=== PATIENT | female | born 1980 | race Hispanic/Latino ===

== ENCOUNTER 2020-02-28 07:27 | Inpatient (IN) | payer OTHER, SELFPAY ==
[2020-02-28] VITALS (18 sets, daily range): BP systolic 105–138; BP diastolic 62–97
[~2020-02-28] VITALS: Ht 162.6 cm; Wt 122.5 kg
[2020-02-28 07:55] LABS: BASOPHILS % (AUTO) 0.8 % (0.0-5.0); EOSINOPHILS % (AUTO) 4.9 % (0.0-8.0); HEMATOCRIT 42.5 % (36-48); LYMPHOCYTES % (AUTO) 19.4 % (21.0-51.0); MEAN CORPUSCULAR HEMOGLOBIN 27.3 pg (27.0-33.0); MEAN CORPUSCULAR HGB CONC 32.5 g/dL (32.0-36.0); NEUTROPHILS % (AUTO) 67.4 % (40.0-77.0); PLATELET COUNT (AUTO) 321 K/uL (130-400); RED BLOOD CELL COUNT(AUTO) 5.06 MIL/uL (4.00-5.50); RED CELL DISTRIBUTION WIDTH 12.7 % (11.0-15.5); WHITE BLOOD COUNT (AUTO) 7.3 K/uL (4.8-10.8)
[2020-02-28 08:20] LABS: ALBUMIN 3.6 g/dL (3.5-5.0); BILIRUBIN,DIRECT 0.1 mg/dL (0.0-0.3); BILIRUBIN,TOTAL 0.3 mg/dL (0.2-1.0); CREATININE 0.7 mg/dL (0.5-1.5); POTASSIUM 4.5 mmol/L (3.5-5.1); TOTAL PROTEIN, SERUM 7.7 g/dL (6.0-8.3)
[2020-02-28 08:59] LABS: APPEARANCE,URINE Clear (CLEAR); BILIRUBIN,URINE Negative (NEGATIVE); COLOR,URINE Yellow (YELLOW); GLUCOSE, URINE (UA) Negative (NEGATIVE); HCG,QUAL RESULT NEGATIVE (NEGATIVE); KETONES,URINE Negative (NEGATIVE); LEUKOCYTE ESTERASE ,URINE Negative (NEGATIVE); NITRATE,URINE Negative (NEGATIVE); OCCULT BLOOD,URINE Negative (NEGATIVE); PROTEIN,URINE Negative (NEGATIVE); UROBILINOGEN,URINE 0.2 mg/dL (0.2-1.0)
[2020-02-28] MEDS ORDERED: MORPHINE SULFATE 2 MG/ML 1ML SYG IV PRN (09:30)
[2020-02-28] MEDS ORDERED: ONDANSETRON HCL 4 MG/2 ML VIAL IV PRN (09:30)
[2020-02-28] MEDS ORDERED: MORPHINE SULFATE 4 MG/1ML SYG IV PRN (09:30)
[2020-02-28] MEDS ORDERED: SODIUM CHLORIDE 0.9% 1000ML 1,000 ML IV SCH (09:30)
[2020-02-28] MEDS ORDERED: SUCCINYLCHOLINE 200MG/10ML SYR ONE ×2 (09:39→09:41)
[2020-02-28] MEDS ORDERED: DEXAMETHASONE SOD PHOSPHATE 10MG/ML 1ML VIAL ONE (09:39)
[2020-02-28] MEDS ORDERED: MIDAZOLAM HCL 1 MG/ML 2ML VIAL ONE (09:39)
[2020-02-28] MEDS ORDERED: LIDOCAINE PF 2% 5ML ABBOJECT ONE ×2 (09:39→09:41)
[2020-02-28] MEDS ORDERED: PROPOFOL 10 MG/ML 20ML VIAL IV ONE (09:39)
[2020-02-28] MEDS ORDERED: FENTANYL CITRATE PF 50 MCG/1 ML 2ML VIAL ONE (09:40)
[2020-02-28] MEDS ORDERED: ONDANSETRON HCL 4 MG/2 ML VIAL ONE ×2 (09:40→11:19)
[2020-02-28] MEDS ORDERED: ROCURONIUM 10MG/1ML SYR 10 MG/ML ML ONE (09:40)
[2020-02-28] MEDS ORDERED: NEOSTIGMINE 5MG/5ML SYR IV ONE (09:40)
[2020-02-28] MEDS ORDERED: GLYCOPYRROLATE 1 MG/5 ML SYRINGE ONE (09:40)
[2020-02-28] MEDS ORDERED: BUPR-93 PO (09:41)
[2020-02-28] MEDS ORDERED: LACTATED RINGERS 1000ML 1,000 ML IV ONE (09:49)
[2020-02-28] MEDS ORDERED: SODIUM CHLORIDE 0.9% 10 ML VIAL ONE (09:49)
[2020-02-28] MEDS: CEFAZOLIN SODIUM 1 GM VIAL ONE ×2 (10:01→10:10)
[2020-02-28] MEDS ORDERED: MEPERIDINE-PF 25 MG/ML SYG ONE ×2 (10:46→11:16)
[2020-02-28] MEDS ORDERED: FAMOTIDINE/PF 20 MG/2 ML VIAL IV SCH (21:00)
== END 2020-02-28 13:20 | disposition home or self-care (01) | DRG 328 ==
LOC: EDH 07:27 → EDHIP 09:23
PROVIDERS: ADMIT Internal Medicine; ATTEND Internal Medicine
PROC: 0DJ64ZZ Inspection of Stomach, Percutaneous Endoscopic Approach (ICD-10-PCS; principal; 2020-02-28 09:00)
DX: K43.2 Incisional hernia without obstruction or gangrene (principal); K66.0 Peritoneal adhesions (postprocedural) (postinfection); Z98.84 Bariatric surgery status; Z90.49 Acquired absence of other specified parts of digestive tract; Z85.72 Personal history of non-Hodgkin lymphomas
CPT/HCPCS: 36415; 80053; 80076; 81003; 81025; 83690; 85025; G0378; J0330; J0690; J1100; J2001; J2175; J2250; J2405; J2704; J2710; J3010; J3490; J7030; J7120

== ENCOUNTER 2020-11-14 17:00 | Inpatient (IN) | payer OTHER ==
[~2020-11-14] VITALS: Ht 165.1 cm; Wt 126.1 kg
[~2020-11-14 17:00] MED LIST: BUPR-93 PO
[2020-11-15 10:40] VITALS: BP_SYST 143; BP_SYST 201; BP_DIAS 81; BP_DIAS 90
[2020-11-15 10:58] LABS: BASOPHILS % (AUTO) 0.6 % (0.0-5.0); EOSINOPHILS % (AUTO) 4.1 % (0.0-8.0); HEMATOCRIT 40.8 % (36-48); MEAN CORPUSCULAR HEMOGLOBIN 25.7 pg (27.0-33.0); MEAN CORPUSCULAR HGB CONC 32.1 g/dL (32.0-36.0); MEAN CORPUSCULAR VOLUME 80.2 fL (79-99); MONOCYTES % (AUTO) 6.1 % (3.0-13.0); NEUTROPHILS % (AUTO) 68.4 % (40.0-77.0); PLATELET COUNT (AUTO) 326 K/uL (130-400); RED BLOOD CELL COUNT(AUTO) 5.09 MIL/uL (4.00-5.50); RED CELL DISTRIBUTION WIDTH 14.3 % (11.0-15.5); WHITE BLOOD COUNT (AUTO) 8.5 K/uL (4.8-10.8)
[2020-11-15 11:10] LABS: INR 0.98 (0.85-1.15); PROTHROMBIN TIME 10.7 SEC (9.6-11.6)
[2020-11-15 11:11] LABS: CREATININE 0.7 mg/dL (0.5-1.5); PARTIAL THROMBOPLASTIN TIME 27.6 SEC (26.3-35.5); POTASSIUM 4.2 mmol/L (3.5-5.1)
[2020-11-17] MEDS: CEFAZOLIN 3GM /D5W 100ML 100 ML IV SCH (06:00)
[2020-11-18] MEDS: CEFAZOLIN 3GM /D5W 100ML 100 ML IV SCH (06:00)
[2020-11-20] VITALS (27 sets, daily range): BP systolic 96–160; BP diastolic 58–101
[2020-11-20] MEDS ORDERED: KETAMINE 50MG/ML SYRINGE 50 MG/ML DISP.SYRIN IV ONE (07:10)
[2020-11-20] MEDS ORDERED: DEXMEDETOMIDINE HCL 200 MCG/2 ML VIAL IV ONE (07:10)
[2020-11-20] MEDS ORDERED: MAGNESIUM SULFATE 1 GM/2 ML VIAL ONE (07:11)
[2020-11-20] MEDS ORDERED: SCOPOLAMINE HYDROBROMIDE 1 EACH ADH..PATCH TD ONE (07:48)
[2020-11-20] MEDS ORDERED: BUPIVACAINE/PF 0.5% 30ML VIAL ONE (07:58)
[2020-11-20] MEDS ORDERED: CEFAZOLIN SODIUM 1 GM VIAL IVP ONE (08:00)
[2020-11-20] MEDS ORDERED: METOCLOPRAMIDE 10 MG/2 ML VIAL ONE (08:02)
[2020-11-20] MEDS: 0.9%NACL 1000ML 1,000 ML IV SCH ×2 (08:04→11:30)
[2020-11-20] MEDS: CEFAZOLIN SODIUM 1 GM VIAL ONE ×2 (08:05→08:45)
[2020-11-20] MEDS ORDERED: FAMOTIDINE 20MG VIAL IV ONE (08:13)
[2020-11-20] MEDS ORDERED: MIDAZOLAM HCL 1 MG/ML 2ML VIAL ONE (08:39)
[2020-11-20] MEDS ORDERED: ONDANSETRON 4MG INJ ONE ×2 (08:39→11:09)
[2020-11-20] MEDS ORDERED: SUGAMMADEX SODIUM 200 MG/2 ML VIAL IV ONE (08:42)
[2020-11-20] MEDS ORDERED: PROPOFOL 10 MG/ML 20ML VIAL IV ONE (08:49)
[2020-11-20] MEDS ORDERED: ROCURONIUM 10MG/1ML SYR 10 MG/ML ML ONE ×2 (08:50→09:19)
[2020-11-20] MEDS ORDERED: DEXAMETHASONE SOD PHOSPHATE 10MG/ML 1ML VIAL ONE (09:04)
[2020-11-20] MEDS ORDERED: FENTANYL CITRATE PF 50 MCG/1 ML 2ML VIAL ONE (09:18)
[2020-11-20] MEDS ORDERED: SCOPOLAMINE HYDROBROMIDE 1 EACH ADH..PATCH TD SCH (09:30)
[2020-11-20] MEDS ORDERED: FAMOTIDINE 20MG VIAL IV SCH (09:30)
[2020-11-20] MEDS ORDERED: KETOROLAC 30MG VIAL (30MG/ML) ONE (11:10)
[2020-11-20] MEDS ORDERED: MEPERIDINE-PF 25 MG/ML SYG ONE ×2 (11:50→11:59)
[2020-11-20] MEDS ORDERED: MORPHINE 5 MG/ML VIAL (5MG OR GREATER DOSE) IVP PRN (12:00)
[2020-11-20] MEDS ORDERED: KETOROLAC 30MG VIAL (30MG/ML) IV PRN (12:00)
[2020-11-20] MEDS: LACTATED RINGERS 1000ML 1,000 ML IV SCH ×2 (13:54→20:00)
[2020-11-20] MEDS: ONDANSETRON 4MG INJ IVP PRN ×2 (13:54→20:14)
[2020-11-20] MEDS: FAMOTIDINE 20MG VIAL IV SCH (20:14)
[2020-11-20] MEDS: ENOXAPARIN SODIUM 30 MG/0.3 ML SQ SCH (20:15)
[2020-11-21] VITALS: BP 140/83
[2020-11-21] MEDS: ONDANSETRON 4MG INJ IVP PRN ×4 (01:52→20:08)
[2020-11-21 03:50] VITALS: BP 145/89
[2020-11-21 03:56] LABS: BASOPHILS % (AUTO) 0.2 % (0.0-5.0); HEMATOCRIT 36.1 % (36-48); LYMPHOCYTES % (AUTO) 10.3 % (21.0-51.0); MEAN CORPUSCULAR HEMOGLOBIN 26.2 pg (27.0-33.0); MEAN CORPUSCULAR HGB CONC 31.9 g/dL (32.0-36.0); MEAN CORPUSCULAR VOLUME 82.2 fL (79-99); MONOCYTES % (AUTO) 9.4 % (3.0-13.0); NEUTROPHILS % (AUTO) 79.5 % (40.0-77.0); PLATELET COUNT (AUTO) 315 K/uL (130-400); RED BLOOD CELL COUNT(AUTO) 4.39 MIL/uL (4.00-5.50); RED CELL DISTRIBUTION WIDTH 14.1 % (11.0-15.5)
[2020-11-21] MEDS: LACTATED RINGERS 1000ML 1,000 ML IV SCH ×3 (04:00→20:10)
[2020-11-21 04:13] LABS: CREATININE 0.7 mg/dL (0.5-1.5); POTASSIUM 4.4 mmol/L (3.5-5.1)
[2020-11-21 07:00] VITALS: BP 153/82
[2020-11-21] MEDS ORDERED: METOCLOPRAMIDE 10 MG/2 ML VIAL ONE (09:16)
[2020-11-21] MEDS: FAMOTIDINE 20MG VIAL IV SCH ×2 (09:19→20:08)
[2020-11-21] MEDS: ENOXAPARIN SODIUM 30 MG/0.3 ML SQ SCH ×2 (09:20→20:10)
[2020-11-21 11:00] VITALS: BP 143/71
[2020-11-21] MEDS: METOCLOPRAMIDE 10 MG/2 ML VIAL IVP SCH ×2 (12:00→18:25)
[2020-11-21 15:00] VITALS: BP 151/83
[2020-11-21 19:00] VITALS: BP 159/85
[2020-11-22] VITALS: BP 146/76
[2020-11-22] MEDS: METOCLOPRAMIDE 10 MG/2 ML VIAL IVP SCH ×3 (00:21→12:00)
[2020-11-22 04:00] VITALS: BP 145/93
[2020-11-22] MEDS: LACTATED RINGERS 1000ML 1,000 ML IV SCH ×2 (04:00→12:00)
[2020-11-22 08:00] VITALS: BP 157/85
[2020-11-22] MEDS: ENOXAPARIN SODIUM 30 MG/0.3 ML SQ SCH (08:44)
[2020-11-22] MEDS ORDERED: FAMOTIDINE 20MG TAB PO SCH (09:00)
[2020-11-22 12:01] VITALS: BP 151/83
== END 2020-11-22 15:51 | disposition home or self-care (01) | DRG 621 ==
LOC: EDSTATUS 17:00 → DAHIP 11-20 07:06 → 4BH 11-20 12:00
PROVIDERS: ADMIT Surgery; ATTEND Surgery
PROC: 5A09357 Assistance with Respiratory Ventilation, Less than 24 Consecutive Hours, Continuous Positive Airway Pressure (ICD-10-PCS; 2020-11-20)
PROC: 0DB64Z3 Excision of Stomach, Percutaneous Endoscopic Approach, Vertical (ICD-10-PCS; principal; 2020-11-20 08:00)
PROC: 0DJ08ZZ Inspection of Upper Intestinal Tract, Via Natural or Artificial Opening Endoscopic (ICD-10-PCS; 2020-11-20 08:00)
PROC: 5A09357 Assistance with Respiratory Ventilation, Less than 24 Consecutive Hours, Continuous Positive Airway Pressure (ICD-10-PCS; 2020-11-21)
PROC: 5A09357 Assistance with Respiratory Ventilation, Less than 24 Consecutive Hours, Continuous Positive Airway Pressure (ICD-10-PCS; 2020-11-22)
DX: E66.01 Morbid (severe) obesity due to excess calories (principal); K66.0 Peritoneal adhesions (postprocedural) (postinfection); Z20.822 Contact with and (suspected) exposure to COVID-19; E11.9 Type 2 diabetes mellitus without complications; Z68.42 Body mass index [BMI] 45.0-49.9, adult; Z90.49 Acquired absence of other specified parts of digestive tract
CPT/HCPCS: 36415; 43235; 80048; 82948; 85025; 85610; 85730; 86850; 86900; 86901; 87635; 94660; 94760; 96374; A4606; G0378; J0690; J1100; J1650; J1885; J2175; J2250; J2270; J2405; J2704; J2765; J3010; J3475; J3490; J7030; J7120

== ENCOUNTER → 2024-01-28 | Outpatient (CLI) | payer OTHER ==
[2024-01-28 10:00] LABS: INR 1.01 (0.85-1.15); PARTIAL THROMBOPLASTIN TIME 27.9 SEC (26.3-35.5); PROTHROMBIN TIME 10.9 SEC (9.6-11.6)
--- NOTE | 2024-01-28 11:40 | NUR ---
U/S GUIDED BILATERAL THYROID NODULE FNA TOLERATED PROCEDURE. PERFORMED BY DR Boom SANDRA. PUNCTURE SITE TO BILATERAL NECK AREA. X9 ASPIRATIONS COLLECTED (X4 LT, x4 RT CYST ASPIRATION) BY REEL TENDER MAHAMED. END OF PROCEDURE AT 1120. DRESSING DRY AND INTACT. NO BLEEDING NOTED. DISCHARGE INSTRUCTIONS GIVEN. VERBALIZED UNDERSTANDING. DISCHARGE VIA AMBULATORY. DENIES PAIN. A&O.
--- NOTE | 2024-01-28 16:51 | HMCIMG ---
US FINE NEEDLE ASP IR HISTORY: Bilateral thyroid nodules COMPARISON: None TECHNIQUE: Informed consent was obtained. Risks and benefits were explained to the patient. A timeout was performed. Patient was prepped and draped in a sterile fashion. Local anesthetics was given as required. Under ultrasound guidance, right thyroid mass was localized. Fine needle aspiration of right thyroid nodule was performed. Subsequently, under ultrasound guidance, left thyroid nodule was localized. Fine-needle aspiration of left thyroid nodule was also performed. FINDINGS: Patient tolerated procedure without complication. Patient left the department in good condition. IMPRESSION: 1. Uncomplicated fine needle aspirations of bilateral thyroid nodules.
== END | disposition home or self-care (01) ==
LOC: RAH 08:46
PROVIDERS: ATTEND Internal Medicine
DX: E04.2 Nontoxic multinodular goiter (principal); E78.5 Hyperlipidemia, unspecified; E66.9 Obesity, unspecified; Z98.84 Bariatric surgery status; Z68.32 Body mass index [BMI] 32.0-32.9, adult; Z79.01 Long term (current) use of anticoagulants; Z79.899 Other long term (current) drug therapy
CPT/HCPCS: 10005; 10006; 36415; 76942; 85610; 85730; 88173; 88305

== ENCOUNTER → 2024-11-10 | Outpatient (CLI) | payer OTHER ==
[~2024-11-10] MED LIST changes: +CYAN500T3 PO; +DIATR MEGLU/DIATRIZOATE SODIUM 30 ML BOTTLE ONE; +IPRA3AMP24 IH; +LEVO-70 PO; +SEMA2PEN SQ; +VALA100031 PO
--- NOTE | 2024-11-11 10:10 | HMCIMG ---
DOUBLE CONTRAST UPPER GI SERIES with small bowel follow-through.: Finding: The study was performed using provocative maneuvers After swallowing effervescent crystal and thick barium, there is no definite intrinsic or extrinsic lesion seen in the esophagus. There is a small hiatal hernia with grade 1 esophageal reflux The stomach has has gastric sleeve with postsurgical changes.. The rugal folds appear to be normal. The duodenal bulb, duodenal sweep, and upper jejunum appear to be normal. The small bowel follow-through is carried at 2 hours patient did not return for 4 hour follow-up. Patient is status post cholecystectomy of malignant multiple clips. In the mid abdomen there is a prior mesh repair as with multiple coils seen. Fluoroscopy time: 0.7 minute . IMPRESSION: Status post gastric sleeve. Small hiatal hernia with grade 1 esophageal reflux The small bowel follow-through is limited it has not reached the colon patient has not returned for follow-up radiograph.
== END | disposition home or self-care (01) ==
LOC: RAH 08:31
PROVIDERS: ATTEND Internal Medicine Gastroenterology
DX: K21.9 Gastro-esophageal reflux disease without esophagitis (principal); K56.600 Partial intestinal obstruction, unspecified as to cause; K44.9 Diaphragmatic hernia without obstruction or gangrene; Z98.84 Bariatric surgery status; Z90.49 Acquired absence of other specified parts of digestive tract
CPT/HCPCS: 74240; Q9963